=== PATIENT | female | born 1985 | race African-American/Black ===

== ENCOUNTER 2017-07-31 04:49 | Emergency (ER) | payer BC ==
[~2017-07-31] VITALS: Ht 172.7 cm; Wt 79.4 kg
[~2017-07-31 04:49] MED LIST: HYDROCODONE-AP1 EAC6
[2017-07-31 04:54] VITALS: BP 121/71
== END 2017-07-31 05:16 | disposition home or self-care (01) ==
LOC: M.ERS 04:49
DX: Z48.00 Encounter for change or removal of nonsurgical wound dressing (principal)

== ENCOUNTER 2021-04-13 06:36 | Emergency (ER) | payer BC ==
[~2021-04-13] VITALS: Ht 172.7 cm; Wt 90.7 kg
[2021-04-13] MEDS ORDERED: RELAFEN500 M1 PO (06:50)
[2021-04-13 07:49] LABS: ABSOLUTE BASOPHILS 0.1 thou/uL (0.0-0.2); ABSOLUTE LYMPHOCYTES 1.9 thou/uL (0.8-5.3); ABSOLUTE MONOCYTES 0.7 thou/uL (0.0-1.2); BASOPHILS 0.7 %; EOSINOPHILS 0.5 %; HEMATOCRIT 48.4 % (37.0-47.0); HEMOGLOBIN 16.3 gm/dL (12.0-15.0); LYMPHOCYTES 24.2 %; MCH 31.2 pg (26.0-34.0); MCHC 33.8 g/dL (28.0-37.0); MCV 92.4 fL (80.0-100.0); MONOCYTES 9.3 %; MPV 10.1 fl. (7.2-11.1); NUCLEATED RBCS 0 /100WBC; PLATELET COUNT* 189 thou/uL (150-400); POLYS 65.3 %; RBC 5.24 mil/uL (4.20-5.00); RDW-CV 12.6 % (10.5-14.5); WBC 7.6 thou/uL (4.0-11.0)
[2021-04-13 07:57] LABS: CALCIUM 9.3 mg/dL (8.5-10.1); CREATININE 1.2 mg/dL (0.6-1.3); POTASSIUM 3.9 mmol/L (3.5-5.1)
[2021-04-13 07:59] LABS: ALBUMIN 4.1 g/dL (3.4-5.0); TOTAL BILIRUBIN 0.7 mg/dL (<0.1-1.0); TOTAL PROTEIN 8.5 g/dL (6.4-8.2)
[2021-04-13] MEDS ORDERED: ZOFRAN ODT4 MG DISSOLVE (09:13)
[2021-04-13] MEDS ORDERED: PROTONIX40 M4 PO (09:13)
[2021-04-13 09:23] VITALS: BP 114/72
--- NOTE | 2021-04-13 09:31 | EKG ---
[place] [address] ELECTROCARDIOGRAM REPORT Name: LUPE JOANIEED Yi Room: [facility]#: [id number] Admission: 04/13/21 Attend Phys: Discharge: Date of : 81 Date of Service: 04/13/21 0646 Report #: [id number] THIS REPORT FOR: //name// [facility] ED Test Date: 2021-04-13 Test Time: 06:46:25 Pat Name: ED NAIR Department: Room: Gender: F [employer]: [place] : 1985 Requested By: Tariq Escobedo Order Number: [id number] MD: Shin Rivas Measurements Intervals [place] Rate: 103 P: 78 WV: 145 QRS: -170 QRSD: 144 T: 35 QT: 377 QTc: 494 Interpretive Statements Sinus tachycardia Left atrial enlargement RBBB and LPFB Baseline wander in lead(s) III,aVL,V3,V4 Compared to ECG 05/15/2015 20:36:05 Atrial abnormality now present Left posterior fascicular block now present Sinus rate has increased Electronically Signed On 04-13-2021 9:31:03 RN RECRUITMENT by Shin Rivas [email or web address] <ELECTRONICALLY SIGNED> By: Shin Rivas MD, FACC 04/13/21 0931 0646 Shin Rivas MD, FAC /EPI
== END 2021-04-13 09:23 | disposition home or self-care (01) ==
LOC: M.ERS 06:36
PROVIDERS: Family Medicine
DX: U07.1 COVID-19 (principal); R11.2 Nausea with vomiting, unspecified; Z79.899 Other long term (current) drug therapy